=== PATIENT | male | born 1985 | race Caucasian/White ===

== ENCOUNTER 2023-01-13 00:14 | Emergency (ER) | payer SELFPAY ==
[~2023-01-13] VITALS: Ht 167.6 cm; Wt 81.6 kg
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
[2023-01-13] MEDS ORDERED: IBUPROFEN 400 MG TABLET PO ONE (01:00)
[2023-01-13] MEDS ORDERED: IBUPROFEN 400 MG TABLET ONE (01:08)
--- NOTE | 2023-01-13 01:38 | NUR ---
PT TAKEN TO CT VIA [facility]
--- NOTE | 2023-01-13 02:09 | NUR ---
PT RETURNED TO ER BED [address]
--- NOTE | 2023-01-13 03:39 | NUR ---
pt ok to discharge per dr emery. Patient discharged to home in stable condition. Written and verbal after care instructions given. Patient verbalizes understanding of instruction.Patient is awake and alert to self, day, and place. pt ambulatory with a steady gait
[2023-01-13 03:40] VITALS: BP 142/95
== END 2023-01-13 03:41 | disposition home or self-care (01) ==
LOC: ER 00:28
DX: S13.4XXA Sprain of ligaments of cervical spine, initial encounter (principal); S33.5XXA Sprain of ligaments of lumbar spine, initial encounter; S09.90XA Unspecified injury of head, initial encounter; V89.2XXA Person injured in unspecified motor-vehicle accident, traffic, initial encounter; Y93.89 Activity, other specified; Y92.89 Other specified places as the place of occurrence of the external cause; Y99.8 Other external cause status
CPT/HCPCS: 70450-TC; 72110-TC; 72125-TC